=== PATIENT | male | born 1945 | race Caucasian/White ===

== ENCOUNTER 2018-01-07 09:50 | Emergency (ER) | payer MEDICARE, BC ==
[2018-01-07] MEDS: Sodium Chloride 0.9% 1,000 ML IV ONE ×2 (10:30→11:54)
[2018-01-07] MEDS: Sodium Chloride 0.9% 1,000 ML ONE (10:37)
[2018-01-07] MEDS: Ondansetron 4 MG/2 ML SDV IVPUSH ONE (10:37)
[2018-01-07] MEDS: Ondansetron 4 MG/2 ML SDV ONE (10:38)
[2018-01-07 10:49] LABS: CHLORIDE,CL 108 mmol/L (98-115); SODIUM,NA 135 mmol/L (136-145)
[2018-01-07 11:07] VITALS: BP 116/45
--- NOTE | 2018-01-07 11:15 | EDM.PDOC ---
ED HPI GENERAL MEDICAL PROBLEM - General Chief Complaint: General Stated Complaint: dizzines Time Seen by Provider: 01/07/18 10:24 Source of Information: Reports: Patient History Limitations: Reports: No Limitations - History of Present Illness INITIAL COMMENTS - FREE TEXT/NARRATIVE: Patient is a 72-year-old gentleman who presents to the emergency department this morning with a complaint of dizziness. Patient states that he woke at 3 o' clock this morning to go to the restroom and upon rising from bed became dizzy. Patient states she went to the bathroom and was able to go back to bed and sleep. Patient woke up again at 6 a.m. this morning and the symptoms continued. Patient had 2 episodes of vomiting, but denies abdominal pain, or blood in vomit. Patient states he had similar symptoms many years ago but nothing recently. Patient denies chest pain, shortness of breath, any head injury or headache, fever, extensive outdoor activity in heat environment, or bowel changes. Onset: Today Duration: Hour(s): Location: Reports: Head Quality: Reports: Other (Dizziness) Improves with: Reports: Rest Worsens with: Reports: Movement Associated Symptoms: Reports: Nausea/Vomiting - Related Data Allergies Allergy/AdvReac Type Severity Reaction Status Date / Time aspirin Allergy Shortness Verified 01/07/18 10:43 of Breath levofloxacin [From Levaquin] Allergy Shortness Verified 01/07/18 10:43 of Breath Home Meds: Home Meds Levothyroxine Sodium [Synthroid] 100 mcg PO DAILY 01/07/18 [History] Multivitamin [Multivitamins] 1 cap PO DAILY 01/07/18 [History] Past Medical History HEENT History: Reports: None Endocrine/Metabolic History: Reports: Hypothyroidism - Past Surgical History GI Surgical History: Reports: Hernia, Inguinal Endocrine Surgical History: Reports: Thyroidectomy Social & Family History - Family History Family Medical History: Noncontributory - Tobacco Use Smoking Status *Q: Never Smoker Second Hand Smoke Exposure: No - Caffeine Use Caffeine Use: Reports: Coffee - Alcohol Use Days Per Week of Alcohol Use: 2 Number of Drinks Per Day: 1 Total Drinks Per Week: 2 Date of Last Drink: 01/06/18 Time of Last Drink: 18:00 - Recreational Drug Use Recreational Drug Use: No ED ROS GENERAL - Review of Systems Review Of Systems: ROS reveals no pertinent complaints other than HPI. Constitutional: Reports: No Symptoms HEENT: Reports: No Symptoms Respiratory: Reports: No Symptoms Cardiovascular: Reports: No Symptoms Endocrine: Reports: No Symptoms GI/Abdominal: Reports: Nausea, Vomiting : Reports: No Symptoms Musculoskeletal: Reports: No Symptoms Skin: Reports: No Symptoms Neurological: Reports: Dizziness Psychiatric: Reports: No Symptoms Hematologic/Lymphatic: Reports: No Symptoms Immunologic: Reports: No Symptoms ED EXAM, GENERAL - Physical Exam Exam: See Below Exam Limited By: No Limitations General Appearance: Alert, WD/WN, No Apparent Distress Eye Exam: Bilateral Eye: Normal Inspection, Nystagmus (No nystagmus) Ears: Normal External Exam, Normal Canal, Hearing Grossly Normal, Normal TMs Nose: Normal Inspection, Normal Mucosa, No Blood Throat/Mouth: Normal Inspection, Normal Oropharynx, Normal Voice, No Airway Compromise Head: Atraumatic, Normocephalic Neck: Normal Inspection, Supple, Non-Tender, Full Range of Motion. No: Carotid Bruit, Lymphadenopathy (L), Lymphadenopathy (R) Respiratory/Chest: No Respiratory Distress, Lungs Clear, Normal Breath Sounds, No Accessory Muscle Use, Chest Non-Tender Cardiovascular: No Murmur, Bradycardia GI/Abdominal: Normal Bowel Sounds, Soft, Non-Tender, No Organomegaly, No Distention, No Abnormal Bruit, No Mass Back Exam: Normal Inspection. No: CVA Tenderness (L), CVA Tenderness (R) Extremities: Normal Inspection, No Pedal Edema Neurological: Alert, CN II-XII Intact, Normal Cognition Psychiatric: Normal Affect, Normal Mood Skin Exam: Warm, Dry, Intact, Normal Color, No Rash Lymphatic: No Adenopathy EKG INTERPRETATION EKG Date: 01/07/18 Time: 10:10 Rhythm: Other (Sinus bradycardia) Rate (Beats/Min): 52 [place]: Normal P-Wave: Present QRS: Normal ST-T: Normal QT: Normal Comparison: No Change EKG Interpretation Comments: Previous EKG on 06/15/2015. Also shows sinus bradycardia at 51. No other change Course - Vital Signs Last Recorded V/S: Last Vital Signs Temp 96.8 F 01/07/18 10:05 Pulse 60 01/07/18 11:04 Resp 15 01/07/18 11:04 BP 116/45 L 01/07/18 11:04 Pulse Ox 96 01/07/18 11:04 - Orders/Labs/Meds Orders: Active Orders 24 hr Category Date Time Status EKG Documentation Completion [RC] ASDIRECTED Care 01/07/18 10:03 Active Chest 2V [CR] Stat Exams 01/07/18 10:03 Ordered UA W/MICROSCOPIC [URIN] Stat Lab 01/07/18 10:04 Ordered Sodium Chloride 0.9% @ 999 MLS/HR (1000ml) Med 01/07/18 10:25 Ordered Sodium Chloride 0.9% [Normal Saline] 1,000 ml IV .BOLUS EKG 12 Lead [EK] Routine Ther 01/07/18 10:02 Ordered Medication Orders Sodium Chloride (Normal Saline) 1,000 mls @ 999 mls/hr IV .BOLUS ONE Stop: 01/07/18 11:25 Last Admin: 01/07/18 10:30 Dose: 999 mls/hr Labs: Laboratory Tests 01/07/18 01/07/18 Range/Units 10:15 10:15 WBC 7.0 (5.0-10.0) 10^3/uL RBC 4.48 L (4.50-6.00) 10^6/uL Hgb 13.9 (13.0-17.0) g/dL Hct 41.9 (40.0-52.0) % MCV 93.5 H (82.0-92.0) fL MCH 30.9 (27.0-31.0) pg MCHC 33.1 (32.0-36.0) g/dL RDW 13.1 (11.5-14.5) % Plt Count 185 (150-300) 10^3/uL MPV 8.3 (7.4-10.4) fL Neut % (Auto) 86.4 H (50.0-70.0) % Lymph % (Auto) 9.4 L (20.0-40.0) % Leslie % (Auto) 4.0 (2.0-8.0) % Eos % (Auto) 0.2 L (1.0-3.0) % Baso % (Auto) 0.0 (0.0-1.0) % Neut # (Auto) 6.0 (2.5-7.0) 10^3/uL Lymph # (Auto) 0.7 L (1.0-4.0) 10^3/uL [place] # (Auto) 0.3 (0.1-0.8) 10^3/uL Eos # (Auto) 0.0 L (0.1-0.3) 10^3/uL Baso # (Auto) 0.0 (0.0-0.1) 10^3/uL Sodium 135 L (136-145) mmol/L Potassium 4.0 (3.3-5.3) mmol/L Chloride 108 (98-115) mmol/L Carbon Dioxide 24.5 (21.0-32.0) mmol/L BUN 16 (6-25) mg/dL Creatinine 0.82 (0.51-1.17) mg/dL Est Cr Clr Drug Dosing TNP Estimated GFR (MDRD) > 60 mL/min Glucose 156 H (70-110) mg/dL Calcium 8.7 (8.7-10.3) mg/dL Total Bilirubin 0.6 (0.2-1.0) mg/dL AST 26 (15-37) U/L ALT 31 (12-78) U/L Alkaline Phosphatase 68 (46-116) IU/L Total Protein 6.9 (6.4-8.2) g/dL Albumin 3.69 (3.00-4.80) g/dL Meds: Medications Generic Name Dose Route Start Last Admin Trade Name Freq PRN Reason Stop Dose Admin Sodium Chloride 1,000 mls @ 999 mls/hr 01/07/18 10:25 01/07/18 10:30 Normal Saline IV 01/07/18 11:25 999 mls/hr .BOLUS ONE Administration Discontinued Medications Generic Name Dose Route Start Last Admin Trade Name Walt PRN Reason Stop Dose Admin Diazepam 5 mg 01/07/18 10:25 01/07/18 10:37 Valium IVPUSH 01/07/18 10:26 5 mg ONETIME ONE Administration Sodium Chloride Confirm 01/07/18 10:20 01/07/18 10:37 Normal Saline Administered 01/07/18 10:21 1 mls/hr Dose Administration 1,000 mls @ as directed .ROUTE .STK-MED ONE Ondansetron HCl Confirm 01/07/18 10:20 01/07/18 10:38 Zofran Administered 01/07/18 10:21 Not Given Dose 4 mg .ROUTE .STK-MED ONE Ondansetron HCl 4 mg 01/07/18 10:25 01/07/18 10:37 Zofran IVPUSH 01/07/18 10:26 4 mg ONETIME ONE Administration - Radiology Interpretation Free Text/Narrative:: Chest x-ray shows no acute cardiopulmonary process - Re-Assessments/Exams Free Text/Narrative Re-Assessment/Exam: 01/07/18 12:46 Patient afebrile, nontoxic appearing, vital signs stable. Following Celestina maneuver, Symptoms mostly subsided. Meclizine [id number] for symptom relief. Patient will follow-up with Dr. Garcia next 1-2 days and return to emergency department sooner if symptoms continue. 01/07/18 12:49 Departure - Departure Time of Disposition: 12:50 Disposition: Home, Self-Care 01 Condition: Good Clinical Impression: Dizziness Benign positional vertigo Qualifiers: Laterality: unspecified laterality Qualified Code(s): H81.10 - Benign paroxysmal vertigo, unspecified ear - Discharge Information Instructions: Benign Positional Vertigo Referrals: Chantal Eugene MD [Primary Care Provider] - Additional Instructions: Take meclizine 12.5 mg every 4-6 hours needed for dizziness. Pharmacy will have this medication [id number]. Follow-up with Dr. Garcia in one to 2 days. Return to emergency from an sooner if symptoms continue or worsen. - My Orders Last 24 Hours: My Active Orders 01/07/18 10:02 EKG 12 Lead [EK] Routine 01/07/18 10:03 EKG Documentation Completion [RC] ASDIRECTED Chest 2V [CR] Stat 01/07/18 10:04 UA W/MICROSCOPIC [URIN] Stat 01/07/18 10:25 Sodium Chloride 0.9% @ 999 MLS/HR (1000ml) Sodium Chloride 0.9% [Normal Saline] 1,000 ml IV .BOLUS - Assessment/Plan Last 24 Hours: My Active Orders 01/07/18 10:02 EKG 12 Lead [EK] Routine 01/07/18 10:03 EKG Documentation Completion [RC] ASDIRECTED Chest 2V [CR] Stat 01/07/18 10:04 UA W/MICROSCOPIC [URIN] Stat 01/07/18 10:25 Sodium Chloride 0.9% @ 999 MLS/HR (1000ml) Sodium Chloride 0.9% [Normal Saline] 1,000 ml IV .BOLUS Assessment:: Dizziness Plan: Follow-up at [facility] in 1-2 days
== END 2018-01-07 13:25 | disposition home or self-care (01) ==
LOC: KA.ED 09:50
DX: H81.10 Benign paroxysmal vertigo, unspecified ear (principal); E03.9 Hypothyroidism, unspecified; Z88.6 Allergy status to analgesic agent; Z88.8 Allergy status to other drugs, medicaments and biological substances; Z79.899 Other long term (current) drug therapy
CPT/HCPCS: 36415; 71046; 80053; 81001; 84439; 84443; 84484; 85025; 93005; 96361; 96374; 96375; 99283; 99284; J2405; J3360; J7030

== ENCOUNTER 2018-04-23 07:55 | Emergency (ER) | payer MEDICARE, BC ==
[2018-04-23 08:15] VITALS: BP 124/62
[2018-04-23] MEDS ORDERED: Ondansetron 4 MG/2 ML SDV IVPUSH ONE ×2 (08:52→11:07)
[2018-04-23 09:15] LABS: ANION GAP 11.7 mmol/L (5-15); CHLORIDE,CL 104 mmol/L (98-115); SODIUM,NA 139 mmol/L (136-145)
--- NOTE | 2018-04-23 09:15 | EDM.PDOC ---
ED HPI GENERAL MEDICAL PROBLEM - General Chief Complaint: Syncope Stated Complaint: dizzy Time Seen by Provider: 04/23/18 08:47 Source of Information: Reports: Patient, Family () History Limitations: Reports: No Limitations - History of Present Illness INITIAL COMMENTS - FREE TEXT/NARRATIVE: Patient presents with nausea, vomiting and vertigo that started last evening and continues today. It is worsened by head movement and better when he holds his head still (gets better within less than 30 seconds). He denies chest pain , irregular heartbeat, vision changes, ear ringing or roaring. He has had two similar episodes in the last 3 months, each lasting about 2 days. He was in ER for the first one in January and given meclizine which seemed to help but has never had a Rx to use it at home. The last time he went to clinic, was found to have orthostatic hypotension and got 2 liters of IV fluids for it. He hasn' t had head CT or MRI and hasn't tried PT. - Related Data Allergies Allergy/AdvReac Type Severity Reaction Status Date / Time aspirin Allergy Shortness Verified 04/23/18 08:16 of Breath levofloxacin [From Levaquin] Allergy Shortness Verified 04/23/18 08:16 of Breath Home Meds: Home Meds Levothyroxine Sodium [Synthroid] 100 mcg PO DAILY 01/07/18 [History] Multivitamin [Multivitamins] 1 cap PO DAILY 01/07/18 [History] Garlic [Garlique] 6,000 mcg PO DAILY 03/21/18 [History] Past Medical History HEENT History: Reports: Impaired Vision Cardiovascular History: Reports: None Respiratory History: Reports: None Gastrointestinal History: Reports: None Genitourinary History: Reports: None Musculoskeletal History: Reports: None Neurological History: Reports: Migraines Psychiatric History: Reports: None Endocrine/Metabolic History: Reports: Hypothyroidism Hematologic History: Reports: None Dermatologic History: Reports: None - Infectious Disease History Infectious Disease History: Reports: Measles - Past Surgical History HEENT Surgical History: Reports: Adenoidectomy, Tonsillectomy GI Surgical History: Reports: Appendectomy, Hernia, Inguinal Endocrine Surgical History: Reports: Thyroidectomy Neurological Surgical History: Reports: None Musculoskeletal Surgical History: Reports: None Social & Family History - Family History Family Medical History: Noncontributory - Tobacco Use Smoking Status *Q: Never Smoker - Caffeine Use Caffeine Use: Reports: Coffee, Soda, Tea Other Caffeine Use: regular pop - Recreational Drug Use Recreational Drug Use: No ED ROS GENERAL - Review of Systems Review Of Systems: See Below Constitutional: Denies: Fever, Chills HEENT: Reports: Vertigo. Denies: Ear Pain, Hearing Loss, Vision Change Respiratory: Denies: Shortness of Breath Cardiovascular: Denies: Chest Pain, Blood Pressure Problem, Lightheadedness, Palpitations, Syncope Endocrine: Reports: No Symptoms GI/Abdominal: Reports: Nausea, Vomiting. Denies: Abdominal Pain, Diarrhea : Reports: No Symptoms Musculoskeletal: Denies: Neck Pain, Shoulder Pain, Arm Pain, Back Pain Skin: Denies: Cyanosis, Jaundice, Mottled, Pallor, Diaphoresis Neurological: Reports: Dizziness. Denies: Confusion, Headache, Numbness, Paresthesia, Pre-Existing Deficit, Seizure, Syncope, Tingling, Trouble Speaking , Difficulty Walking, Weakness, Change in Speech Psychiatric: Denies: Agitation, Anxiety, Confusion Hematologic/Lymphatic: Denies: Anemia, Easy Bleeding ED EXAM, DIZZINESS - Physical Exam Exam: See Below Exam Limited By: No Limitations General Appearance: Alert, WD/WN, No Apparent Distress Eye Exam: Bilateral Eye: EOMI, Normal Inspection, PERRL, Other (No observable nystagmus) Ears: Normal External Exam, Normal Canal, Hearing Grossly Normal, Normal TMs, Other (Hearing is normal and he can hear soft finger rub equal bilaterally.) Nose: Normal Inspection, No Blood Throat/Mouth: Normal Inspection, Normal Lips, Normal Voice, No Airway Compromise Head Exam: Atraumatic, Normocephalic Neck: Normal Inspection, Supple, Non-Tender, Full Range of Motion. No: Carotid Bruit, Limited Range of Motion, Tender Lateral, Tender Midline Respiratory/Chest: No Respiratory Distress, Lungs Clear, Normal Breath Sounds, No Accessory Muscle Use Cardiovascular: Regular Rate, Rhythm, No JVD, No Murmur GI/Abdominal: Normal Bowel Sounds, Soft, Non-Tender, No Organomegaly, No Distention Neurological: Alert, Normal Mood/Affect, Normal Dorsiflexion, CN II-XII Intact, Normal Plantar Flexion, No Motor/Sensory Deficits, Oriented x 3, Other (DixHall Wittmann doesn't produce nystagmus and only slight vertigo to right. [place] is normal. Head thrust shows he is able to hold gaze fixed on object.) Back Exam: Normal Inspection, Full Range of Motion Extremities: Normal Inspection, Normal Range of Motion Psychiatric: Normal Affect, Normal Mood Skin Exam: Warm, Dry, Intact, Normal Color, No Rash Course - Vital Signs Last Recorded V/S: Last Vital Signs Temp 96.3 F 04/23/18 08:07 Pulse 50 L 04/23/18 08:07 Resp 18 04/23/18 08:07 BP 124/62 04/23/18 08:07 Pulse Ox 98 04/23/18 08:07 Orthostatic Blood Pressure [ 140/58 Standing] Orthostatic Blood Pressure [ 134/58 Sitting] Orthostatic Blood Pressure [ 133/57 Supine] - Orders/Labs/Meds Orders: Active Orders 24 hr Category Date Time Status EKG Documentation Completion [RC] ASDIRECTED Care 04/23/18 08:22 Active PT Evaluation and Treatment [CONS] Stat Cons 04/23/18 10:14 Ordered Brain wo Cont [MR] Routine Exams 04/25/18 10:33 Ordered EKG 12 Lead [EK] Routine Ther 04/23/18 08:21 Ordered Labs: Laboratory Tests 04/23/18 04/23/18 04/23/18 Range/Units 08:21 08:35 08:35 WBC 5.97 (5.00-10.00) 10^3/uL RBC 4.68 (4.50-6.00) 10^6/uL Hgb 14.5 (13.0-17.0) g/dL Hct 43.9 (40.0-52.0) % MCV 93.8 H (82.0-92.0) fL MCH 31.0 (27.0-31.0) pg MCHC 33.0 (32.0-36.0) g/dL RDW 12.9 (11.5-14.5) % Plt Count 177 (150-400) 10^3/uL MPV 10.1 (7.4-10.4) fL Immature Gran % (Auto) 0.5 (0.0-5.0) % Neut % (Auto) 68.8 (50.0-70.0) % Lymph % (Auto) 18.8 L (20.0-40.0) % [place] % (Auto) 10.7 H (2.0-8.0) % Eos % (Auto) 0.7 L (1.0-3.0) % Baso % (Auto) 0.5 (0.0-1.0) % Immature Gran # (Auto) 0.03 (0.00-0.50) 10^3/uL Neut # (Auto) 4.11 (2.50-7.00) 10^3/uL Lymph # (Auto) 1.12 (1.00-4.00) 10^3/uL [place] # (Auto) 0.64 (0.10-0.80) 10^3/uL Eos # (Auto) 0.04 L (0.10-0.30) 10^3/uL Baso # (Auto) 0.03 (0.00-0.10) 10^3/uL Sodium 139 (136-145) mmol/L Potassium 3.9 (3.3-5.3) mmol/L Chloride 104 (98-115) mmol/L Carbon Dioxide 27.2 (21.0-32.0) mmol/L Anion Gap 11.7 (5-15) mmol/L BUN 10 (6-25) mg/dL Creatinine 0.85 (0.51-1.17) mg/dL Est Cr Clr Drug Dosing 83.16 mL/min Estimated GFR (MDRD) > 60 mL/min Glucose 116 mg/dL Calcium 8.5 L (8.7-10.3) mg/dL Specimen Type Urincc Urine Color Yellow (YELLOW) Urine Appearance Clear (CLEAR) Urine pH 6.5 (5.0-9.0) Ur Specific [place] 1.025 (1.005-1.030) Urine Protein 30 H (NEGATIVE) mg/dL Urine Glucose (UA) Negative (NEGATIVE) mg/dL Urine Ketones Trace H (NEGATIVE) mg/dL Urine Occult Blood Trace-intact H (NEGATIVE) Urine Nitrite Negative (NEGATIVE) Urine Bilirubin Small H (NEGATIVE) Urine Urobilinogen 1.0 (0.2-1.0) E.U./dL Ur Leukocyte Esterase Negative (NEGATIVE) Urine RBC 0-5 /HPF Urine WBC 0-5 /HPF Ur Epithelial Cells Rare /LPF Urine Bacteria Rare (NONE TO FEW) /HPF Meds: Medications Discontinued Medications Generic Name Dose Route Start Last Admin Trade Name Freq PRN Reason Stop Dose Admin Meclizine HCl 25 mg 04/23/18 10:17 04/23/18 11:07 Antivert PO 04/23/18 10:18 25 mg ONETIME ONE Administration Ondansetron HCl 4 mg 04/23/18 08:52 04/23/18 08:57 Zofran IVPUSH 04/23/18 08:53 4 mg ONETIME ONE Administration Ondansetron HCl 4 mg 04/23/18 11:07 04/23/18 11:17 Zofran IVPUSH 04/23/18 11:08 4 mg ONETIME ONE Administration - Re-Assessments/Exams Free Text/Narrative Re-Assessment/Exam: 04/23/18 11:32 Discussed findings and treatment options with patient. PT came and did Celestina Maneuver in ER. It was not diagnostic for BPPV but during DixHall Wittmann produced vomiting for PT. Gave meclizine and zofran in ER. Patient is doing better. Will get MRI on Sunday with followup with PCP. I discussed this with Dr. Chua (PCP) as well. Patient discharged to home in stable condition. Departure - Departure Time of Disposition: 11:17 Disposition: Home, Self-Care 01 Condition: Good Clinical Impression: Vertigo N&V (nausea and vomiting) Qualifiers: Vomiting type: unspecified Vomiting Intractability: non-intractable Qualified Code(s): R11.2 - Nausea with vomiting, unspecified - Discharge Information Instructions: Vertigo, [id number], Nausea and Vomiting, Adult, Benign Positional Vertigo Referrals: Chantal Eugene MD [Primary Care Provider] - Forms: ED Department Discharge Additional Instructions: 1. Take the meclizine as directed for the dizziness and nausea. 2. Take the ondansetron as directed for nausea and vomiting. 3. Return for the MRI as scheduled. 4. Follow up with Dr. Chantal Chua on Sunday or Sunday for MRI results. 5. Return to ER as needed. - My Orders Last 24 Hours: My Active Orders 04/23/18 08:21 EKG 12 Lead [EK] Routine 04/23/18 08:22 EKG Documentation Completion [RC] ASDIRECTED 04/23/18 10:14 PT Evaluation and Treatment [CONS] Stat 04/25/18 10:33 Brain wo Cont [MR] Routine - Assessment/Plan Last 24 Hours: My Active Orders 04/23/18 08:21 EKG 12 Lead [EK] Routine 04/23/18 08:22 EKG Documentation Completion [RC] ASDIRECTED 04/23/18 10:14 PT Evaluation and Treatment [CONS] Stat 04/25/18 10:33 Brain wo Cont [MR] Routine
[2018-04-23] MEDS ORDERED: Meclizine 25 MG Tab PO ONE (10:17)
== END 2018-04-23 11:54 | disposition home or self-care (01) ==
LOC: KA.ED 07:55
DX: R11.2 Nausea with vomiting, unspecified (principal); R42 Dizziness and giddiness; E03.9 Hypothyroidism, unspecified; Z88.8 Allergy status to other drugs, medicaments and biological substances
CPT/HCPCS: 80048; 81001; 85025; 93005; 96374; 96376; 99284; A9270-GY; J2405

== ENCOUNTER 2018-10-27 07:34 | Emergency (ER) | payer MEDICARE, BC ==
[2018-10-27 07:44] VITALS: BP 109/60
[2018-10-27 08:28] LABS: ANION GAP 11.6 mmol/L (5-15); CHLORIDE,CL 101 mmol/L (98-115); SODIUM,NA 135 mmol/L (136-145)
--- NOTE | 2018-10-27 08:52 | EDM.PDOC ---
ED HPI GENERAL MEDICAL PROBLEM - General Chief Complaint: General Stated Complaint: COLD,COUGH SYMPTOMS Time Seen by Provider: 10/27/18 08:16 Source of Information: Reports: Patient, Family ( and daughter) History Limitations: Reports: No Limitations - History of Present Illness INITIAL COMMENTS - FREE TEXT/NARRATIVE: Patient presents with cough, fever and fatigue for a week. He has significantly reduced energy levels per daughter. He denies COPD, CHF, asthma or previous pneumonia. He never smoked. 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, Cold Therapy, NSAIDS - Related Data Allergies Allergy/AdvReac Type Severity Reaction Status Date / Time aspirin Allergy Shortness Verified 10/27/18 07:45 of Breath levofloxacin [From Levaquin] Allergy Shortness Verified 10/27/18 07:45 of Breath Home Meds: Home Meds Levothyroxine Sodium [Synthroid] 100 mcg PO DAILY 01/07/18 [History] Multivitamin [Multivitamins] 1 cap PO DAILY 01/07/18 [History] Garlic [Garlique] 6,000 mcg PO DAILY 03/21/18 [History] Past Medical History HEENT History: Reports: Impaired Vision Cardiovascular History: Reports: None Respiratory History: Reports: None Gastrointestinal History: Reports: None Genitourinary History: Reports: None Musculoskeletal History: Reports: None Neurological History: Reports: Migraines Psychiatric History: Reports: None Endocrine/Metabolic History: Reports: Hypothyroidism Hematologic History: Reports: None Dermatologic History: Reports: None - Infectious Disease History Infectious Disease History: Reports: Measles - Past Surgical History HEENT Surgical History: Reports: Adenoidectomy, Tonsillectomy GI Surgical History: Reports: Appendectomy, Hernia, Inguinal Endocrine Surgical History: Reports: Thyroidectomy Neurological Surgical History: Reports: None Musculoskeletal Surgical History: Reports: None Social & Family History - Family History Family Medical History: Noncontributory - Tobacco Use Smoking Status *Q: Never Smoker Second Hand Smoke Exposure: Yes - Caffeine Use Caffeine Use: Reports: Coffee, Soda, Tea Other Caffeine Use: regular pop - Alcohol Use Days Per Week of Alcohol Use: 1 Number of Drinks Per Day: 1 Total Drinks Per Week: 1 - Recreational Drug Use Recreational Drug Use: No ED ROS GENERAL - Review of Systems Review Of Systems: See Below Constitutional: Reports: Fever, Chills, Malaise, Weakness, Fatigue HEENT: Denies: Ear Pain, Throat Pain Respiratory: Reports: Cough. Denies: Shortness of Breath, Wheezing Cardiovascular: Denies: Chest Pain, Syncope Endocrine: Reports: Fatigue GI/Abdominal: Reports: Abdominal Pain (muscles, from coughing). Denies: Diarrhea, Vomiting : Reports: No Symptoms Musculoskeletal: Reports: No Symptoms Skin: Denies: Cyanosis, Jaundice, Mottled, Pallor, Diaphoresis Neurological: Denies: Confusion, Seizure, Syncope, Trouble Speaking, Gait Disturbance Psychiatric: Denies: Agitation, Anxiety, Confusion ED EXAM, GENERAL - Physical Exam Exam: See Below Exam Limited By: No Limitations General Appearance: Alert, WD/WN, No Apparent Distress Eye Exam: Bilateral Eye: EOMI, Normal Inspection, PERRL Ears: Normal External Exam, Normal Canal, Hearing Grossly Normal, Normal TMs Nose: Normal Inspection, No Blood Throat/Mouth: Normal Inspection, Normal Lips, Normal Oropharynx, Normal Voice, No Airway Compromise Head: Atraumatic, Normocephalic Neck: Normal Inspection, Full Range of Motion Respiratory/Chest: No Respiratory Distress, No Accessory Muscle Use, Crackles ( right lung base). No: Rhonchi, Wheezing, Stridor Cardiovascular: Regular Rate, Rhythm, No Murmur GI/Abdominal: Normal Bowel Sounds, Soft, Non-Tender, No Organomegaly, No Distention Back Exam: Normal Inspection, Full Range of Motion. No: CVA Tenderness (L), CVA Tenderness (R) Extremities: Normal Inspection, Normal Range of Motion Neurological: Alert, Oriented, Normal Cognition, No Motor/Sensory Deficits Psychiatric: Normal Affect, Normal Mood Skin Exam: Warm, Dry, Intact, Normal Color, No Rash Course - Vital Signs Last Recorded V/S: Last Vital Signs Temp 97.7 F 10/27/18 07:42 Pulse 67 10/27/18 08:33 Resp 18 10/27/18 07:42 BP 109/60 10/27/18 07:42 Pulse Ox 93 L 10/27/18 08:33 - Orders/Labs/Meds Orders: Active Orders 24 hr Category Date Time Status Chest 2V [CR] Stat Exams 10/27/18 07:48 Taken Labs: Laboratory Tests 10/27/18 10/27/18 Range/Units 08:00 08:00 WBC 9.00 (5.00-10.00) 10^3/uL RBC 4.42 L (4.50-6.00) 10^6/uL Hgb 14.1 (13.0-17.0) g/dL Hct 40.9 (40.0-52.0) % MCV 92.5 H (82.0-92.0) fL MCH 31.9 H (27.0-31.0) pg MCHC 34.5 (32.0-36.0) g/dL RDW 13.0 (11.5-14.5) % Plt Count 139 L (150-400) 10^3/uL MPV 9.7 (7.4-10.4) fL Immature Gran % (Auto) 0.2 (0.0-5.0) % Neut % (Auto) 67.7 (50.0-70.0) % Lymph % (Auto) 19.9 L (20.0-40.0) % [place] % (Auto) 11.3 H (2.0-8.0) % Eos % (Auto) 0.6 L (1.0-3.0) % Baso % (Auto) 0.3 (0.0-1.0) % Immature Gran # (Auto) 0.02 (0.00-0.50) 10^3/uL Neut # (Auto) 6.09 (2.50-7.00) 10^3/uL Lymph # (Auto) 1.79 (1.00-4.00) 10^3/uL Story # (Auto) 1.02 H (0.10-0.80) 10^3/uL Eos # (Auto) 0.05 L (0.10-0.30) 10^3/uL Baso # (Auto) 0.03 (0.00-0.10) 10^3/uL Sodium 135 L (136-145) mmol/L Potassium 4.1 (3.3-5.3) mmol/L Chloride 101 (98-115) mmol/L Carbon Dioxide 26.5 (21.0-32.0) mmol/L Anion Gap 11.6 (5-15) mmol/L BUN 16 (6-25) mg/dL Creatinine 0.94 (0.51-1.17) mg/dL Est Cr Clr Drug Dosing 73.83 mL/min Estimated GFR (MDRD) > 60 mL/min Glucose 94 (75 - 99) mg/dL Calcium 8.8 (8.7-10.3) mg/dL TSH, Ultra Sensitive 0.360 (0.340-4.820) uIU/mL Meds: Medications Discontinued Medications Generic Name Dose Route Start Last Admin Trade Name Walt PRN Reason Stop Dose Admin Azithromycin 500 mg 10/27/18 08:42 Zithromax PO 10/27/18 08:43 ONETIME ONE Ceftriaxone Sodium 1 gm 10/27/18 08:40 Rocephin IM 10/27/18 08:41 ONETIME ONE - Re-Assessments/Exams Free Text/Narrative Re-Assessment/Exam: 10/27/18 08:55 CXR shows mild infiltrate in right lung base; still waiting on report. Discussed findings and recommendations with patient and family. Will give Rocephin 1 gm IM and Zithromax 500 mg po now; will discharge on Omnicef and Zithromax po. CXR report indicated mild bibasilar infiltrates. Discussed this with patient. He is discharged to home in stable condition. Departure - Departure Time of Disposition: 09:12 Disposition: Home, Self-Care 01 Condition: Good Clinical Impression: CAP (community acquired pneumonia) Qualifiers: Laterality: right Lung location: lower lobe of lung Qualified Code(s): J18.1 - Lobar pneumonia, unspecified organism - Discharge Information Instructions: Community-Acquired Pneumonia, Adult, [id number] Referrals: Chantal Eugene MD [Primary Care Provider] - Forms: ED Department Discharge Additional Instructions: 1. Drink 8 cups of water daily. 2. Take both antibiotics as directed, starting tomorrow morning. 3. You can use Robitussin or Mucinex to help loosen the mucous in your lungs if you want. 4. Follow up with your PCP if not improving in 3-4 days or sooner if worsening. 5. Return to ER as needed. - My Orders Last 24 Hours: My Active Orders 10/27/18 07:48 Chest 2V [CR] Stat - Assessment/Plan Last 24 Hours: My Active Orders 10/27/18 07:48 Chest 2V [CR] Stat
[2018-10-27] MEDS: Azithromycin 250 MG Tab PO ONE (08:56)
[2018-10-27] MEDS: cefTRIAXone 1 GM Vial IM ONE (08:57)
--- NOTE | 2018-10-27 09:06 | CR ---
[id number] RAD/RAD Chest PA And Lateral EXAM: FRONTAL AND LATERAL CHEST INDICATION: Cough. COMPARISON: January 07, 2018. DISCUSSION: Mild bibasilar infiltrates and atelectasis superimposed on mild chronic right base scarring. Normal heart size. Stable tiny calcified granuloma within the right upper lobe. IMPRESSION: 1. Mild bibasilar infiltrates and atelectasis. Unless clinically indicated sooner, a 6 week follow-up exam suggested to ensure resolution. Sen Alonzo MD 10/27/18 0905 Thank you for allowing us to participate in the care of your patient.
== END 2018-10-27 09:15 | disposition home or self-care (01) ==
LOC: KA.ED 07:34
DX: J18.1 Lobar pneumonia, unspecified organism (principal); E03.9 Hypothyroidism, unspecified; Z77.22 Contact with and (suspected) exposure to environmental tobacco smoke (acute) (chronic); Z79.899 Other long term (current) drug therapy; Z88.6 Allergy status to analgesic agent; Z88.1 Allergy status to other antibiotic agents
CPT/HCPCS: 36415; 71046; 80048; 84443; 85025; 87804; 96372; 99283-25; 99284; A9270-GY; J0696

== ENCOUNTER 2021-01-10 19:10 | Emergency (ER) | payer MEDICARE, BC ==
[2021-01-10] MEDS ORDERED: Sodium Chloride 0.9% 1,000 ML ONE (19:28)
[2021-01-10] MEDS ORDERED: Sodium Chloride 0.9% 1,000 ML IV ONE (19:30)
--- NOTE | 2021-01-10 20:02 | EDM.PDOC ---
ED HPI GENERAL MEDICAL PROBLEM - General Chief Complaint: Syncope Stated Complaint: DIZZINESS Time Seen by Provider: 01/10/21 19:30 Source of Information: Reports: Patient History Limitations: Reports: No Limitations - History of Present Illness INITIAL COMMENTS - FREE TEXT/NARRATIVE: 75 YO WM PRESENTS TO ER COMPLAINING OF NEAR SYNCOPAL EPISODE WHICH OCCURRED AT 5PM TODAY. 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 PT DENIES LOSS OF CONSCIOUSNESS. PT REPORTS EPISODE LASTED FOR APPROXIMATELY 1 HOUR BUT IMPROVED AFTER ORAL FLUIDS AND REST IN COOL ENVIRONMENT. PT REPORTS HE CAME TO ER DUE TO HIS FAMILY ENCOURAGING HIM TO GO, BUT DENIES ANY SYMPTOMS CURRENTLY. PT DENIES ANY CHEST PAIN, HEADACHE, NECK PAIN, SHORTNESS OF BREATH, DIAPHORESIS, NAUSEA/VOMITING OR FEELING OF IMPENDING DOOM. PT DENIES ANY RECENT ILLNESSES. PT TOLERATING PO FLUIDS IN ER. Onset: Today Duration: Hour(s): (3) Location: Reports: Generalized Severity: Mild Improves with: Reports: Rest Worsens with: Reports: Movement Associated Symptoms: Reports: No Other Symptoms. Denies: Confusion, Chest Pain, Cough, Fever/Chills, Nausea/Vomiting, Seizure, Shortness of Breath, Syncope, Weakness - Related Data Allergies Allergy/AdvReac Type Severity Reaction Status Date / Time levofloxacin [From Levaquin] Allergy Shortness Verified 01/10/21 19:33 of Breath Home Meds: Home Meds Levothyroxine Sodium [Synthroid] 100 mcg PO DAILY 01/07/18 [History] Multivitamin [Multivitamins] 1 cap PO DAILY 01/07/18 [History] Garlic [Garlique] 6,000 mcg PO DAILY 03/21/18 [History] Past Medical History HEENT History: Reports: Impaired Vision Cardiovascular History: Reports: None Respiratory History: Reports: None Gastrointestinal History: Reports: None Genitourinary History: Reports: None Musculoskeletal History: Reports: None Neurological History: Reports: Migraines Psychiatric History: Reports: None Endocrine/Metabolic History: Reports: Hypothyroidism Hematologic History: Reports: None Dermatologic History: Reports: None - Infectious Disease History Infectious Disease History: Reports: Measles - Past Surgical History HEENT Surgical History: Reports: Adenoidectomy, Tonsillectomy GI Surgical History: Reports: Appendectomy, Hernia, Inguinal Endocrine Surgical History: Reports: Thyroidectomy Neurological Surgical History: Reports: None Musculoskeletal Surgical History: Reports: None Social & Family History - Family History Family Medical History: No Pertinent Family History - Caffeine Use Caffeine Use: Reports: Coffee, Soda, Tea Other Caffeine Use: regular pop ED ROS GENERAL - Review of Systems Review Of Systems: See Below Constitutional: Reports: No Symptoms HEENT: Reports: No Symptoms Respiratory: Reports: No Symptoms Cardiovascular: Reports: No Symptoms Endocrine: Reports: No Symptoms GI/Abdominal: Reports: No Symptoms : Reports: No Symptoms Musculoskeletal: Reports: No Symptoms Skin: Reports: No Symptoms Neurological: Reports: Dizziness Psychiatric: Reports: No Symptoms Hematologic/Lymphatic: Reports: No Symptoms Immunologic: Reports: No Symptoms ED EXAM, DIZZINESS - Physical Exam Exam: See Below Exam Limited By: No Limitations General Appearance: Alert, WD/WN, No Apparent Distress Eye Exam: Bilateral Eye: EOMI, PERRL Ears: Normal External Exam, Normal Canal, Hearing Grossly Normal, Normal TMs Throat/Mouth: Normal Inspection, Normal Lips, Normal Teeth, Normal Gums, Normal Oropharynx, Normal Voice, No Airway Compromise Head Exam: Atraumatic, Normocephalic Neck: Normal Inspection, Supple, Non-Tender, Full Range of Motion Respiratory/Chest: No Respiratory Distress, Lungs Clear, Normal Breath Sounds, No Accessory Muscle Use, Chest Non-Tender Cardiovascular: Normal Peripheral Pulses, Regular Rate, Rhythm, No Edema, No Gallop, No JVD, No Murmur, No Rub GI/Abdominal: Normal Bowel Sounds, Soft, Non-Tender, No Organomegaly, No Distention, No Abnormal Bruit, No Mass Neurological: Alert, Normal Mood/Affect, Normal Dorsiflexion, CN II-XII Intact, Normal Plantar Flexion, Normal Gait, Normal Reflexes, No Motor/Sensory Deficits, Oriented x 3 Back Exam: Normal Inspection, Full Range of Motion, NT Extremities: Normal Inspection, Normal Range of Motion, Non-Tender, No Pedal Edema, Normal Capillary Refill Psychiatric: Normal Affect, Normal Mood Skin Exam: Warm, Dry, Intact, Normal Color, No Rash #1 Interpretation EKG Date: 01/10/21 Time: 19:28 Rhythm: NSR Rate (Beats/Min): 64 [place]: Normal P-Wave: Present QRS: Normal ST-T: Normal QT: Normal Course - Vital Signs Last Recorded V/S: Last Vital Signs Temp 97.4 F 01/10/21 20:14 Pulse 61 01/10/21 20:14 Resp 12 01/10/21 20:14 BP 127/66 01/10/21 20:14 Pulse Ox 96 01/10/21 20:14 Orthostatic Blood Pressure [ 113/73 Standing] Orthostatic Blood Pressure [ 121/71 Sitting] Orthostatic Blood Pressure [ 125/68 Supine] - Orders/Labs/Meds Orders: Active Orders 24 hr Category Date Time Status EKG Documentation Completion [RC] ASDIRECTED Care 01/10/21 19:34 Active Orthostatic Vital Signs [RC] ASDIRECTED Care 01/10/21 19:36 Active EKG 12 Lead [EK] Stat Ther 01/10/21 18:30 Ordered Labs: Laboratory Tests 01/10/21 01/10/21 Range/Units 19:34 19:35 WBC 12.04 H (5.00-10.00) 10^3/uL RBC 4.44 L (4.50-6.00) 10^6/uL Hgb 14.1 (13.0-17.0) g/dL Hct 40.8 (40.0-52.0) % MCV 91.9 (82.0-92.0) fL MCH 31.8 H (27.0-31.0) pg MCHC 34.6 (32.0-36.0) g/dL RDW 12.1 (11.5-14.5) % Plt Count 163 (150-400) 10^3/uL MPV 10.1 (7.4-10.4) fL Immature Gran % (Auto) 0.5 (0.0-5.0) % Neut % (Auto) 79.9 H (50.0-70.0) % Lymph % (Auto) 10.0 L (20.0-40.0) % [place] % (Auto) 9.1 H (2.0-8.0) % Eos % (Auto) 0.1 L (1.0-3.0) % Baso % (Auto) 0.4 (0.0-1.0) % Neut # (Auto) 9.61 H (2.50-7.00) 10^3/uL Lymph # (Auto) 1.21 (1.00-4.00) 10^3/uL [place] # (Auto) 1.10 H (0.10-0.80) 10^3/uL Eos # (Auto) 0.01 L (0.10-0.30) 10^3/uL Baso # (Auto) 0.05 (0.00-0.10) 10^3/uL Immature Gran # (Auto) 0.06 (0.00-0.50) 10^3/uL Sodium 133 L (136-145) mmol/L Potassium 4.2 (3.5-5.1) mmol/L Chloride 98 (98-107) mmol/L Carbon Dioxide 25.3 (21.0-32.0) mmol/L Anion Gap 13.9 (5-15) mmol/L BUN 23 H (7-18) mg/dL Creatinine 1.17 (0.51-1.17) mg/dL Est Cr Clr Drug Dosing 55.39 mL/min Estimated GFR (MDRD) > 60 mL/min Glucose 124 (70-140) mg/dL Calcium 8.4 L (8.7-10.3) mg/dL Total Bilirubin 0.7 (0.2-1.0) mg/dL AST 21 (15-37) U/L ALT 28 (14-63) U/L Alkaline Phosphatase 66 (46-116) U/L Creatine Kinase 68 (26-276) U/L CK-MB (CK-2) 1.09 (0.00-3.60) ng/mL Troponin I High Sens 17.900 (0-76.000) pg/mL Total Protein 6.5 (6.4-8.2) g/dL Albumin 3.59 (3.40-5.00) g/dL Meds: Medications Discontinued Medications Generic Name Dose Route Start Last Admin Trade Name Freq PRN Reason Stop Dose Admin Sodium Chloride Confirm 01/10/21 19:28 01/10/21 20:01 Normal Saline Administered 01/10/21 19:29 Not Given Dose 1,000 mls @ as directed .ROUTE .STK-MED ONE Sodium Chloride 1,000 mls @ 999 mls/hr 01/10/21 19:30 01/10/21 20:01 Normal Saline IV 01/10/21 20:30 999 mls/hr .BOLUS ONE Administration - Radiology Interpretation Free Text/Narrative:: CT HEAD-NAD CXR-NAD - Re-Assessments/Exams Free Text/Narrative Re-Assessment/Exam: 01/10/21 20:19 ORTHOSTATIC VITALS- NO EVIDENCE OF ORTHOSTASIS SUPINE P- 65; BP-125/68 STANDING- P-70; BP-113/73 PT REPORTS FEELING BETTER. NO COMPLAINTS. WILL FOLLOW UP WITH PCP THIS WEEK FOR FURTHER EVALUATION AND TREATMENT Departure - Departure Time of Disposition: 20:47 Disposition: Home, Self-Care 01 Condition: Good Clinical Impression: Near syncope - Discharge Information Instructions: Near-Syncope, [id number] Referrals: Chantal Eugene MD [Primary Care Provider] - Forms: ED Department Discharge Additional Instructions: 1. DISCHARGE HOME 2. RECOMMEND INCREASE FLUID CONSUMPTION AND TAKE REGULAR BREAKS FROM WORKING OUTSIDE IN THE HEAT 3. FOLLOW UP WITH PCP THIS WEEK FOR FURTHER EVALUATION AND TREATMENT 4. RETURN TO ER FOR WORSENING SYMPTOMS Sepsis Event Note (ED) - Focused Exam Vital Signs: Vital Signs Temp Pulse Resp BP Pulse Ox 01/10/21 20:14 97.4 F 61 12 127/66 96 01/10/21 19:30 95.6 F L 71 14 136/76 97 - My Orders Last 24 Hours: My Active Orders 01/10/21 18:30 EKG 12 Lead [EK] Stat 01/10/21 19:34 EKG Documentation Completion [RC] ASDIRECTED 01/10/21 19:36 Orthostatic Vital Signs [RC] ASDIRECTED - Assessment/Plan Last 24 Hours: My Active Orders 01/10/21 18:30 EKG 12 Lead [EK] Stat 01/10/21 19:34 EKG Documentation Completion [RC] ASDIRECTED 01/10/21 19:36 Orthostatic Vital Signs [RC] ASDIRECTED Assessment:: 1. DIZZINESS Plan: 1. DISCHARGE HOME 2. RECOMMEND INCREASE FLUID CONSUMPTION AND TAKE REGULAR BREAKS FROM WORKING OUTSIDE IN THE HEAT 3. FOLLOW UP WITH PCP THIS WEEK FOR FURTHER EVALUATION AND TREATMENT 4. RETURN TO ER FOR WORSENING SYMPTOMS
--- NOTE | 2021-01-10 20:12 | CR ---
[id number] RAD/RAD Chest Portable EXAM: PORTABLE CHEST RADIOGRAPH. INDICATION: DIZZINESS COMPARISON: CORRELATION IS MADE WITH OCTOBER 27, 2018 FINDINGS: The lungs are clear. The cardiomediastinal contour is prominent but stable. The regional bones and soft tissues are unremarkable. There is no pneumothorax. IMPRESSION: NO ACUTE PROCESS. Justin Espinal MD 01/10/212010 Thank you for allowing us to participate in the care of your patient.
--- NOTE | 2021-01-10 20:13 | CT ---
[id number] CT/CT Head WO IV EXAM: CT Head WO IV CLINICAL DATA: DIZZINESS COMPARISON: CORRELATION IS MADE WITH JANUARY 15, 2020 FINDINGS: There is no mass or mass effect. There is no hemorrhage or hydrocephalus. There are no extra-axial fluid collections. There are no sites of abnormal attenuation. IMPRESSION: NO PLAIN CT EVIDENCE OF ACUTE INTRACRANIAL PROCESS. Justin Espinal MD 01/10/212011 Thank you for allowing us to participate in the care of your patient.
[2021-01-10 20:14] LABS: ANION GAP 13.9 mmol/L (5-15); CHLORIDE,CL 98 mmol/L (98-107); SODIUM,NA 133 mmol/L (136-145)
[2021-01-10 20:15] VITALS: BP 127/66; PULSE 61
== END 2021-01-10 21:00 | disposition home or self-care (01) ==
LOC: KA.ED 19:10
DX: R55 Syncope and collapse (principal); E03.9 Hypothyroidism, unspecified; Z88.1 Allergy status to other antibiotic agents; Z79.899 Other long term (current) drug therapy
CPT/HCPCS: 70450; 71045; 80053; 82550; 82553; 84484; 85025; 93005; 99283; 99284-25; J7030

== ENCOUNTER 2021-08-21 08:44 | Inpatient (IN) | payer MEDICARE, BC ==
[2021-08-21] MEDS ORDERED: Sodium Chloride 0.9% 10 ML Syringe FLUSH PRN (09:32)
[2021-08-21] MEDS ORDERED: Ondansetron 4 MG/2 ML SDV IVPUSH ONE (09:32)
[2021-08-21] MEDS ORDERED: Sodium Chloride 0.9% 1,000 ML IV ONE (09:34)
[2021-08-21] MEDS ORDERED: Acetaminophen 500 MG Tab PO ONE (09:35)
[2021-08-21 10:13] LABS: PTT,PARTIAL THROMBOPLSTIN TIME 27.9 SEC (22.8-31.4)
[2021-08-21 10:30] LABS: ANION GAP 14.6 mmol/L (5-15); CHLORIDE,CL 97 mmol/L (98-107); SODIUM,NA 132 mmol/L (136-145)
[2021-08-21 10:50] LABS: CORONAVIRUS COVID-19 NAA NEGATIVE (NEGATIVE); RESPIRATORY SYNCYTIAL VIR NAA NEGATIVE (NEGATIVE)
[2021-08-21] MEDS ORDERED: Azithromycin 500 MG in Sodium Chloride 0.9% 250 ML IV ONE (11:03)
[2021-08-21] MEDS ORDERED: cefTRIAXone 1 GM Vial IVPUSH ONE (11:03)
[2021-08-21] MEDS ORDERED: Ondansetron 4 MG Tab.DIS PO PRN (11:47)
[2021-08-21] MEDS: Sodium Chloride 0.9% 1,000 ML IV SCH ×2 (12:16→20:58)
[2021-08-21] MEDS: Acetaminophen 325 MG Tab PO PRN ×2 (17:47→22:59)
[2021-08-21] MEDS: Rosuvastatin 10 MG Tab PO SCH (20:54)
[2021-08-22] MEDS: Acetaminophen 325 MG Tab PO PRN ×5 (02:46→23:00)
[2021-08-22] MEDS: Sodium Chloride 0.9% 1,000 ML IV SCH ×3 (05:19→22:32)
[2021-08-22 07:55] LABS: ANION GAP 14.5 mmol/L (5-15); CHLORIDE,CL 100 mmol/L (98-107); SODIUM,NA 133 mmol/L (136-145)
[2021-08-22] MEDS: Azithromycin 250 MG Tab PO SCH (08:00)
[2021-08-22] MEDS: Levothyroxine 100 MCG Tab PO SCH (08:00)
[2021-08-22] MEDS: cefTRIAXone 1 GM Vial IVPUSH SCH (08:01)
[2021-08-22] MEDS: Enoxaparin 40 MG/0.4 ML Syringe SUBCUT SCH (09:08)
[2021-08-22] MEDS ORDERED: Ketorolac 30 MG/ML SDV IM ONE (11:09)
[2021-08-22] MEDS: Rosuvastatin 10 MG Tab PO SCH (20:28)
[2021-08-23] MEDS: Acetaminophen 325 MG Tab PO PRN ×2 (06:11→18:38)
[2021-08-23 07:29] LABS: ANION GAP 15.6 mmol/L (5-15); CHLORIDE,CL 99 mmol/L (98-107); SODIUM,NA 134 mmol/L (136-145)
[2021-08-23] MEDS: Levothyroxine 100 MCG Tab PO SCH (08:46)
[2021-08-23] MEDS: cefTRIAXone 1 GM Vial IVPUSH SCH (08:46)
[2021-08-23] MEDS: Azithromycin 250 MG Tab PO SCH (08:46)
[2021-08-23] MEDS: Enoxaparin 40 MG/0.4 ML Syringe SUBCUT SCH (08:46)
[2021-08-23] MEDS: Rosuvastatin 10 MG Tab PO SCH (20:17)
[2021-08-24] MEDS: Acetaminophen 325 MG Tab PO PRN (03:01)
[2021-08-24 06:23] VITALS: BP 134/72; PULSE 56
[2021-08-24 07:56] LABS: CHLORIDE,CL 101 mmol/L (98-107); SODIUM,NA 138 mmol/L (136-145)
[2021-08-24] MEDS: cefTRIAXone 1 GM Vial IVPUSH SCH (08:11)
[2021-08-24] MEDS: Levothyroxine 100 MCG Tab PO SCH (08:11)
[2021-08-24] MEDS: Azithromycin 250 MG Tab PO SCH (08:12)
== END 2021-08-24 10:05 | disposition home or self-care (01) | DRG 194 ==
LOC: KA.ED 08:44 → KA.MS 11:04
PROVIDERS: ADMIT Internal Medicine; ATTEND Internal Medicine
DX: J18.9 Pneumonia, unspecified organism (principal); H54.7 Unspecified visual loss; E78.00 Pure hypercholesterolemia, unspecified; E87.1 Hypo-osmolality and hyponatremia; Z88.1 Allergy status to other antibiotic agents; E78.5 Hyperlipidemia, unspecified; Z20.822 Contact with and (suspected) exposure to COVID-19; E03.9 Hypothyroidism, unspecified; N31.2 Flaccid neuropathic bladder, not elsewhere classified; Z79.890 Hormone replacement therapy; Z79.899 Other long term (current) drug therapy; Z87.19 Personal history of other diseases of the digestive system; Z90.89 Acquired absence of other organs; Z90.49 Acquired absence of other specified parts of digestive tract
CPT/HCPCS: 0241U; 36415; 71045; 80048; 80053; 83605; 84484; 85025; 85610; 85730; 86140; 87040; 96374; 96375; 99285-25; A9270-GY; J0456; J0696; J1650; J1885; J2405; J7030; J7050

== ENCOUNTER 2021-12-14 09:42 | Emergency (ER) | payer OTHER, MEDICARE, BC ==
[2021-12-14 09:57] VITALS: BP 138/72; PULSE 65
== END 2021-12-14 11:20 | disposition home or self-care (01) ==
LOC: KA.ED 09:42
DX: S40.012A Contusion of left shoulder, initial encounter (principal); E78.00 Pure hypercholesterolemia, unspecified; E03.9 Hypothyroidism, unspecified; Z90.49 Acquired absence of other specified parts of digestive tract; Z79.899 Other long term (current) drug therapy; Z88.1 Allergy status to other antibiotic agents; V49.50XA Passenger injured in collision with unspecified motor vehicles in traffic accident, initial encounter; Y92.410 Unspecified street and highway as the place of occurrence of the external cause
CPT/HCPCS: 71046; 73030-LT; 99284-25

== ENCOUNTER 2025-05-14 20:33 | Emergency (ER) | payer MEDICARE, BC ==
[2025-05-14 20:56] LABS: BASOPHILS ABSOLUTE AUTO 0.06 10^3/uL (0.00-0.10); BASOPHILS PERCENT AUTO 0.8 % (0.0-1.0); EOSINOPHILS ABSOLUTE AUTO 0.16 10^3/uL (0.10-0.30); EOSINOPHILS PERCENT AUTO 2.2 % (1.0-3.0); IMMATURE GRAN ABSOLUTE AUTO 0.02 10^3/uL (0.00-0.04); IMMATURE GRAN PERCENT AUTO 0.3 % (0.0-0.4); LYMPHOCYTES ABSOLUTE AUTO 2.20 10^3/uL (1.00-4.00); LYMPHOCYTES PERCENT AUTO 30.7 % (20.0-40.0); MEAN PLATELET VOLUME 10.3 fL (7.4-10.4); MONOCYTES ABSOLUTE AUTO 0.99 10^3/uL (0.10-0.80); MONOCYTES PERCENT AUTO 13.8 % (2.0-8.0); NEUTROPHILS ABSOLUTE AUTO 3.73 10^3/uL (2.50-7.00); NEUTROPHILS PERCENT AUTO 52.2 % (50.0-70.0); PLATELET COUNT,PLT 167 10^3/uL (150-400); RED BLOOD CELL COUNT 4.17 10^6/uL (4.50-6.00); RED CELL DISTRIBUTION WIDTH 13.2 % (11.5-14.5); WHITE BLOOD CELL COUNT,WBC 7.16 10^3/uL (5.00-10.00)
[2025-05-14 21:12] LABS: ALANINE AMINOTRANSFERASE,ALT 26.0 U/L (14-63); ASPARTATE AMNIOTRANSFERASE,AST 20.0 U/L (15-37); BILIRUBIN TOTAL 0.7 mg/dL (0.2-1.0); BLOOD UREA NITROGEN,BUN 16.0 mg/dL (7-18); CARBON DIOXIDE,CO2 27.3 mmol/L (21.0-32.0); CHLORIDE,CL 105.0 mmol/L (98-107); CREATININE 0.97 mg/dL (0.51-1.17); EST CRCL DRUG DOSING (CG) 65.37 mL/min; GLUCOSE RANDOM 113.0 mg/dL (70-140); POTASSIUM,K 4.1 mmol/L (3.5-5.1); PROTEIN TOTAL,TP 6.5 g/dL (6.4-8.2); SODIUM,NA 141.0 mmol/L (136-145)
[2025-05-14 21:13] LABS: ESTIMATED GFR 79.0 mL/min (>=60)
[2025-05-14 21:34] VITALS: BP 148/74; PULSE 69
== END 2025-05-14 21:32 | disposition home or self-care (01) ==
LOC: KA.ED 20:33
DX: M79.89 Other specified soft tissue disorders (principal); M79.661 Pain in right lower leg; E78.00 Pure hypercholesterolemia, unspecified; E03.9 Hypothyroidism, unspecified; Z79.82 Long term (current) use of aspirin; Z79.899 Other long term (current) drug therapy; Z79.890 Hormone replacement therapy; Z88.1 Allergy status to other antibiotic agents
CPT/HCPCS: 36415; 80053; 85025; 85379; 99283